=== PATIENT | female | born 1995 | race Caucasian/White ===

== ENCOUNTER → 2021-01-18 | Outpatient (CLI) | payer BC ==
[~2021-01-18] MED LIST: MORGIDOX100 MG PO
== END ==
LOC: EMI 14:16
DX: G43.009 Migraine without aura, not intractable, without status migrainosus (principal)
CPT/HCPCS: 70551

== ENCOUNTER → 2021-02-16 | Outpatient (CLI) | payer BC | LOC: US 09:00 | DX: K76.0 Fatty (change of) liver, not elsewhere classified (principal) | CPT/HCPCS: 76705 ==

== ENCOUNTER 2021-02-26 13:49 | Emergency (ER) | payer BC ==
[2021-02-26] MEDS ORDERED: MORGIDOX100 MG PO (17:18)
== END 2021-02-26 17:26 | disposition home or self-care (01) ==
LOC: ER1 13:49
DX: U07.1 COVID-19 (principal); Z88.1 Allergy status to other antibiotic agents; Z79.899 Other long term (current) drug therapy
CPT/HCPCS: 71045; 99284